=== PATIENT | male | born 1955 | race African-American/Black ===

== ENCOUNTER 2019-02-14 10:56 | Inpatient (IN) | payer MEDICAID, OTHER ==
[~2019-02-14] VITALS: Ht 172.7 cm; Wt 49.4 kg
[~2019-02-14 10:56] MED LIST: HCTZ; LISINOPRIL
[2019-02-14] MEDS ORDERED: IBUPROFEN 600MG TABLET PO STA (11:30)
[2019-02-14 12:34] LABS: BASOPHILS % 0.5 % (0.0-2.0); EOSINOPHILS % 0.2 % (0.0-5.0); HEMATOCRIT. 39.9 % (42.0-52.0); HEMOGLOBIN. 13.3 g/dL (14.0-18.0); MEAN CORPUSCULAR HEMOGLOBIN 31.1 pg (28.0-32.0); MEAN CORPUSCULAR VOLUME 93.5 fL (80.0-94.0); MEAN PLATELET VOLUME 8.7 fl (7.4-10.4); NEUTROPHILS % 76.3 % (40.0-76.0); PLATELET 292 x1000/uL (130-400); RED BLOOD CELL COUNT 4.26 mill/uL (4.7-6.1); RED CELL DISTRIBUTION WIDTH 14.7 % (11.6-14.6)
[2019-02-14 12:40] LABS: CHLORIDE 93 mEq/L (98-107)
[2019-02-14 12:48] LABS: INR 1.1; PARTIAL THROMBOPLASTIN TIME 34.4 sec (23.4-31.0); PROTHROMBIN TIME 11.8 sec (9.6-11.0)
[2019-02-14] MEDS ORDERED: KCL 20MEQ/100ML PREMIX 100 ML IV ONE (13:15)
[2019-02-14] MEDS ORDERED: POTASSIUM CHLORIDE 20MEQ TABLET SR PO ONE (13:15)
[2019-02-14] MEDS ORDERED: MAGNESIUM 2 G PREMIX 50 ML IV ONE (13:15)
[2019-02-14] MEDS ORDERED: MAGNESIUM/ALUMINUM HYDROXIDE/SIMETHICONE 30ML UDC PO PRN (15:45)
[2019-02-14] MEDS ORDERED: NITROGLYCERIN 0.4MG TABLET SL SL PRN (15:45)
[2019-02-14] MEDS ORDERED: KETOROLAC 15MG/ML VIAL IV PRN (15:45)
[2019-02-14] MEDS ORDERED: CLONIDINE 0.1MG TABLET PO PRN (15:45)
[2019-02-14] MEDS ORDERED: DOCUSATE SODIUM 100MG CAPSULE PO PRN (15:45)
[2019-02-14] MEDS ORDERED: GUAIFENESIN 200MG/10ML SUGAR FREE UDC PO PRN (15:45)
[2019-02-14] MEDS ORDERED: IPRATROPIUM/ALBUTEROL 0.5-3(2.5)MG/3ML NEB NEB PRN (15:45)
[2019-02-14] MEDS ORDERED: ONDANSETRON HCL 4MG/2ML INJ IV PRN (15:45)
[2019-02-14] MEDS ORDERED: LORAZEPAM 0.5MG TABLET PO PRN (15:45)
[2019-02-14 16:13] LABS: ETHANOL BLOOD < 10 mg/dL
[2019-02-14 16:16] LABS: LDL CHOLESTEROL 68 mg/dL (5-100)
[2019-02-14 16:17] LABS: HDL CHOLESTEROL 50 mg/dL (40-59); PHOSPHORUS 4.1 mg/dL (2.5-4.9)
[2019-02-14 16:26] VITALS: BP 140/93
[2019-02-14] MEDS ORDERED: POTASSIUM PHOS,M-BASIC-D-BASIC 20 MMOL in DEXT 5% WATER 243.3333 ML IV SCH (16:30)
[2019-02-14 16:41] LABS: VITAMIN B12 SERUM 467 pg/mL (211-911)
[2019-02-14 16:48] LABS: FOLIC ACID (FOLATE) SERUM > 20.00 ng/mL (>5.38)
[2019-02-14] MEDS: ENOXAPARIN 40MG/0.4ML SYR SUBCUT SCH (17:37)
[2019-02-14] MEDS ORDERED: POTASSIUM CHLORIDE 20MEQ/PACKET PO NR (18:00)
[2019-02-14 20:00] VITALS: BP 126/80
[2019-02-14] MEDS: FAMOTIDINE 20MG TABLET PO SCH (20:24)
[2019-02-14] MEDS: LISINOPRIL 10MG TABLET PO SCH (20:24)
[2019-02-14] MEDS ORDERED: ZOLPIDEM TARTRATE 5MG TABLET PO PRN (21:00)
[2019-02-15] VITALS (7 sets, daily range): BP systolic 119–149; BP diastolic 65–95
[2019-02-15] MEDS: ACETAMINOPHEN 325MG TABLET PO PRN ×2 (04:59→17:18)
[2019-02-15 06:34] LABS: BASOPHILS % 0.3 % (0.0-2.0); EOSINOPHILS % 0.4 % (0.0-5.0); HEMATOCRIT. 29.8 % (42.0-52.0); HEMOGLOBIN. 9.9 g/dL (14.0-18.0); LYMPHOCYTES % 9.8 % (20.0-50.0); MEAN CORPUSCULAR HEMOGLOBIN 30.6 pg (28.0-32.0); MEAN CORPUSCULAR VOLUME 91.8 fL (80.0-94.0); MONOCYTES % 10.3 % (2.0-8.0); NEUTROPHILS % 79.2 % (40.0-76.0); PLATELET 235 x1000/uL (130-400); RED BLOOD CELL COUNT 3.24 mill/uL (4.7-6.1); RED CELL DISTRIBUTION WIDTH 14.6 % (11.6-14.6)
[2019-02-15 06:42] LABS: CHLORIDE 102 mEq/L (98-107)
[2019-02-15 06:55] LABS: PHOSPHORUS 1.9 mg/dL (2.5-4.9)
[2019-02-15 08:10] LABS: CLARITY URINE CLEAR (CLEAR); COLOR URINE YELLOW (YELLOW); KETONES URINE 1+ (NEGATIVE); LEUKOCYTE ESTERASE URINE 1+ (NEGATIVE); NITRITE URINE NEGATIVE (NEGATIVE); OCCULT BLOOD URINE NEGATIVE (NEGATIVE); PROTEIN URINE 1+ (NEGATIVE); SPECIFIC GRAVITY URINE 1.017 (1.005-1.030)
[2019-02-15] MEDS ORDERED: POTASSIUM CHLORIDE 20MEQ/PACKET PO NR (08:15)
[2019-02-15] MEDS ORDERED: MAGNESIUM 2 G PREMIX 50 ML IV NR (09:00)
[2019-02-15] MEDS ORDERED: POTASSIUM PHOS,M-BASIC-D-BASIC 30 MMOL in DEXT 5% WATER 500 ML IV NR (09:00)
[2019-02-15] MEDS: LISINOPRIL 10MG TABLET PO SCH ×2 (09:13→21:50)
[2019-02-15] MEDS: FAMOTIDINE 20MG TABLET PO SCH ×2 (09:13→21:50)
[2019-02-15 12:29] LABS: *AMPHETAMINES SCREEN URINE NEGATIVE (NEGATIVE); *BARBITURATES SCREEN URINE NEGATIVE (NEGATIVE); *BENZODIAZEPINES SCREEN URINE NEGATIVE (NEGATIVE)
[2019-02-15 12:30] LABS: *COCAINE SCREEN URINE NEGATIVE (NEGATIVE); CANNABINOID URINE SCREEN PRESUMTIVE POSITIVE (NEGATIVE); METHADONE URINE SCREEN NEGATIVE (NEGATIVE); OPIATES URINE SCREEN NEGATIVE (NEGATIVE); PHENCYCLIDINE URINE SCREEN NEGATIVE (NEGATIVE)
[2019-02-15] MEDS: ENOXAPARIN 40MG/0.4ML SYR SUBCUT SCH (17:19)
[2019-02-15] MEDS: LEVOFLOXACIN 500MG PREMIX 100 ML IV SCH (20:38)
[2019-02-15] MEDS: CEFTRIAXONE 1 G PREMIX 50 ML IV SCH (20:38)
[2019-02-16] VITALS: BP 153/54
[2019-02-16 04:00] VITALS: BP 130/70
[2019-02-16 08:00] VITALS: BP 136/88
[2019-02-16] MEDS: LISINOPRIL 10MG TABLET PO SCH ×2 (08:59→21:36)
[2019-02-16] MEDS: FAMOTIDINE 20MG TABLET PO SCH ×2 (08:59→21:35)
[2019-02-16] MEDS ORDERED: SODIUM CHLORIDE 0.9% 500 ML IV NR (10:15)
[2019-02-16] MEDS: SODIUM CHLORIDE 0.9% 1,000 ML IV SCH (10:29)
[2019-02-16] MEDS: ACETAMINOPHEN 325MG TABLET PO PRN (11:31)
[2019-02-16 11:58] VITALS: BP 139/93
[2019-02-16 13:21] LABS: BASOPHILS % 0.5 % (0.0-2.0); EOSINOPHILS % 0.4 % (0.0-5.0); HEMATOCRIT. 30.9 % (42.0-52.0); HEMOGLOBIN. 10.3 g/dL (14.0-18.0); LYMPHOCYTES % 13.8 % (20.0-50.0); MEAN CORPUSCULAR HEMOGLOBIN 30.6 pg (28.0-32.0); MEAN CORPUSCULAR VOLUME 91.6 fL (80.0-94.0); MEAN PLATELET VOLUME 9.4 fl (7.4-10.4); MONOCYTES % 11.4 % (2.0-8.0); NEUTROPHILS % 73.9 % (40.0-76.0); PLATELET 209 x1000/uL (130-400); RED BLOOD CELL COUNT 3.37 mill/uL (4.7-6.1); RED CELL DISTRIBUTION WIDTH 14.6 % (11.6-14.6)
[2019-02-16 13:25] LABS: CHLORIDE 100 mEq/L (98-107)
[2019-02-16] MEDS ORDERED: POTASSIUM CHLORIDE 20MEQ/PACKET PO NR (15:00)
[2019-02-16 16:00] VITALS: BP 128/88
[2019-02-16] MEDS: ENOXAPARIN 40MG/0.4ML SYR SUBCUT SCH (16:33)
[2019-02-16] MEDS ORDERED: KCL 20MEQ/100ML PREMIX 100 ML IV NR (17:00)
[2019-02-16] MEDS: CEFTRIAXONE 1 G PREMIX 50 ML IV SCH (18:35)
[2019-02-16] MEDS: LEVOFLOXACIN 500MG PREMIX 100 ML IV SCH (21:35)
[2019-02-16] MEDS: POTASSIUM CHLORIDE 20MEQ TABLET SR PO SCH (21:36)
[2019-02-16] MEDS ORDERED: MAGNESIUM 2 G PREMIX 50 ML IV SCH (22:00)
[2019-02-17] VITALS: BP 131/94
[2019-02-17] MEDS: SODIUM CHLORIDE 0.9% 1,000 ML IV SCH (00:03)
[2019-02-17 04:00] VITALS: BP 133/89
[2019-02-17] MEDS: FAMOTIDINE 20MG TABLET PO SCH (09:00)
[2019-02-17] MEDS: LISINOPRIL 10MG TABLET PO SCH (09:00)
[2019-02-17] MEDS: POTASSIUM CHLORIDE 20MEQ TABLET SR PO SCH (09:00)
[2019-02-17 09:46] LABS: CHLORIDE 102 mEq/L (98-107)
== END 2019-02-17 11:00 | disposition left against medical advice (07) | DRG 425 ==
LOC: ER 10:56 → 8WST 14:29 → ENRESERV 15:20
PROVIDERS: ADMIT Internal Medicine; ATTEND Internal Medicine
DX: E87.6 Hypokalemia (principal); E43 Unspecified severe protein-calorie malnutrition; K74.60 Unspecified cirrhosis of liver; M79.604 Pain in right leg; M79.605 Pain in left leg; N39.0 Urinary tract infection, site not specified; Z53.29 Procedure and treatment not carried out because of patient's decision for other reasons; E83.42 Hypomagnesemia; I10 Essential (primary) hypertension; D64.9 Anemia, unspecified; Z68.1 Body mass index [BMI] 19.9 or less, adult
CPT/HCPCS: 36415; 71045; 80061; 80305; 80320; 81003; 82607; 82746; 83036; 83540; 83550; 83735; 84100; 93005; 93923; 96365; 99285; C1893; J0696; J1650; J1956; J3475; J3480; J3490; J7030; J7040; J7060; G0480